=== PATIENT | female | born 1945 | race Caucasian/White ===

== ENCOUNTER 2017-12-04 23:29 | Emergency (ER) | payer MEDICARE ==
--- NOTE | 2017-12-05 01:15 | ER Document Report ---
ED Medical Screen (RME) - General Chief Complaint: Headache Stated Complaint: HEADACHE,NECK PAIN Time Seen by Provider: 12/05/17 01:11 Mode of Arrival: Ambulatory Information source: Patient Notes: Patient presents complaining of neck pain for the past week. Patient states that she has first started having right lateral neck pain and then it progressed to left lateral neck pain. Patient does complain of difficulty swallowing but denies any sore throat symptoms. Patient states she has neck muscle tenderness when she is swallowing. Patient does report cough for the past 2 weeks that is occasionally productive. Patient does complain of some occipital headache. Patient denies any nausea vomiting or fever. Patient has a history of hypertension, carpal tunnel, cholecystectomy I have greeted and performed a rapid initial assessment of this patient. A comprehensive ED assessment and evaluation of the patient, analysis of test results and completion of the medical decision making process will be conducted by additional ED providers. TRAVEL OUTSIDE OF THE [place] IN LAST 30 DAYS: No - Related Data Allergies/Adverse Reactions: No Known Allergies Allergy (Unverified 12/04/17 23:36) Physical Exam - Vital signs Vitals: Temp Pulse Resp BP Pulse Ox 98 F 84 18 182/76 H 99 12/04/17 23:39 12/04/17 23:39 12/04/17 23:39 12/04/17 23:39 12/04/17 23:39 - HEENT Neck: Other - Bilateral sternocleidomastoid muscle tenderness, bilateral trapezius muscle tenderness with spasm.. No: Meningismus Course - Vital Signs Vital signs: Temp Pulse Resp BP Pulse Ox 98 F 84 18 182/76 H 99 12/04/17 23:39 12/04/17 23:39 12/04/17 23:39 12/04/17 23:39 12/04/17 23:39 Doctor's Discharge - Discharge Referrals: GARETH MARTIN MD [Primary Care Provider] - Follow up as needed
[2017-12-05] MEDS ORDERED: IPRATROPIUM/ALBUTEROL 0.5-2.5 MG/3 ML AMPUL NEB ONE (02:09)
--- NOTE | 2017-12-05 02:09 | ER Document Report ---
ED General - General Chief Complaint: Headache Stated Complaint: HEADACHE,NECK PAIN Time Seen by Provider: 12/05/17 01:11 Mode of Arrival: Ambulatory Information source: Patient Notes: This is a 72-year-old female with hypertension who presents to the emergency room with nonproductive cough, headache, neck stiffness. Patient states that she was having significant cough for the past week or 2 and she started having headaches associated with severe cough. She does state that the neck stiffness started after. She denies any photophobia. She denies any fever or rash. She denies any nausea or vomiting. Patient does have a significant history of smoking and states has wheezed in the past. TRAVEL OUTSIDE OF THE [place] IN LAST 30 DAYS: No - HPI Onset: Last week Onset/Duration: Gradual Quality of pain: Dull Severity: Moderate Pain Level: 3 Associated symptoms: Nonproductive cough, Shortness of breath. denies: Chest pain, Fever Exacerbated by: Movement Relieved by: Denies Similar symptoms previously: No Recently seen / treated by doctor: No - Related Data Allergies/Adverse Reactions: No Known Allergies Allergy (Unverified 12/04/17 23:36) Past Medical History - General Information source: Patient - Social History Smoking Status: Former Smoker Cigarette use (# per day): No Chew tobacco use (# tins/day): No Frequency of alcohol use: None Drug Abuse: None Lives with: Alone Family History: None Patient has suicidal ideation: No Patient has homicidal ideation: No - Past Medical History Cardiac Medical History: Reports: Hx Hypertension Pulmonary Medical History: Reports: Hx Asthma EENT Medical History: Reports: None Neurological Medical History: Reports: None Endocrine Medical History: Reports: Other - Borderline diabetes (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 denies: Fever EENT: Other - Neck pain Cardiovascular: denies: Chest pain, Palpitations, Heart racing Respiratory: Cough, Wheezing Gastrointestinal: No symptoms reported Genitourinary: No symptoms reported Female Genitourinary: No symptoms reported Musculoskeletal: No symptoms reported Skin: No symptoms reported Hematologic/Lymphatic: No symptoms reported Neurological/Psychological: See HPI Physical Exam - Vital signs Vitals: Temp Pulse Resp BP Pulse Ox 98 F 84 18 182/76 H 99 12/04/17 23:39 12/04/17 23:39 12/04/17 23:39 12/04/17 23:39 12/04/17 23:39 Notes: Physical exam: GENERAL:72-year-old female, alert and oriented 3, no acute distress, she does have stable vital signs and is afebrile. HEAD: Atraumatic, normocephalic. EYES: Pupils equal round and reactive to light, extraocular movements intact, sclera anicteric, conjunctiva are normal. ENT: TMs normal, nares patent, oropharynx clear without exudates. Moist mucous membranes. NECK: Normal range of motion, stiff neck without obvious mass. She does have some tenderness to palpation along the paraspinal muscles in the back. LUNGS: Breath sounds clear to auscultation bilaterally and equal. No wheezes rales or rhonchi. HEART: Regular rate and rhythm without murmurs, rubs or gallops. ABDOMEN: Soft, normoactive bowel sounds. No tenderness to palpation. No guarding, no rebound. No masses appreciated. EXTREMITIES: Normal range of motion, no pitting or edema. No clubbing or cyanosis. NEUROLOGICAL: Cranial nerves II through XII grossly intact. She does have a stiff neck, she has no photophobia and does not appear to have any meningeal irritation. Normal speech, moving all extremities. PSYCH: Normal mood, normal affect. SKIN: Warm, Dry, normal turgor, no rashes or lesions noted. Course - Re-evaluation Re-evalutation: 12/05/17 04:14 Note: Clinically, the patient does not have any symptoms suggestive of meningitis. She has no photophobia. Her headache is significantly improved. She gives a history of having frequent coughs and severe at times. She states that the headache and the neck pain started after. She does have cervical spine disease and I think this may have been exacerbated by her coughing fits. Her chest x-ray does show a small pneumonia and she does have a history of smoking in the past. A trial nebulizer was performed and she thought she could mobilize secretions much better and breathe easier after this. I am going to send her home with an inhaler and treated with antibiotics for pneumonia. I will give her some muscle relaxer and pain medicine for the cervical spine. She is to follow-up with Dr. Shelby. If she has persistent neck pain, outpatient MRI might be pursued. She has no radicular findings now on no motor or sensory disturbance. - Vital Signs Vital signs: Temp Pulse Resp BP Pulse Ox 98 F 73 18 168/66 H 100 12/04/17 23:39 12/05/17 02:19 12/05/17 03:01 12/05/17 03:01 12/05/17 03:01 - Laboratory Result Diagrams: 12/05/17 02:10 12/05/17 02:10 Laboratory results interpreted by me: 12/05/17 02:10 BUN 24 H Glucose 118 H - Diagnostic Test Radiology reviewed: Image reviewed, Reports reviewed - CT of the head shows no mass lesions. CT of the cervical spine shows arthritis with C6/C7 bulging Chest x-ray shows a small pneumonia Discharge - Discharge Clinical Impression: Pneumonia, Cervical strain, Headache Condition: Stable Disposition: HOME, SELF-CARE Additional Instructions: As we discussed, your blood work looked quite good. Your sugar was a little elevated (118) but this is nonfasting. Your thyroid tests were normal. Your tests for anemia were good. CT scan of the head showed no abnormal mass lesions. Cervical spine CT did show degenerative changes with some arthritis and there was some disc bulge seen at C6/C7. This can be contributing to the neck stiffness Which ultimately could have been precipitated by the strong coughing. Your chest x-ray does show a small pneumonia and we are going to prescribe some antibiotics for you. I would like you to use the inhaler treatment: 2 puffs every 4-6 hours as needed. Take the muscle relaxer as prescribed. Take the pain medicine as needed. Take ibuprofen for pain as well. Do not take ibuprofen and Naprosyn together (these are the same class of medicines and it will not offer any more benefit by taking them together). You can take Tylenol in addition to the ibuprofen. Follow-up with Dr. Shelby as planned. It may be better to have a follow-up appointment with him after this treatment. If you have persistent neck pain, you may require an MRI of the cervical spine. Return to the emergency room for worsening cough, worsening shortness of breath , worsening pain or any concerns or getting worse. Prescriptions: Hydrocodone/Acetaminophen [[place] 5-325 mg Tablet] 1 tab PO Q4HP PRN #25 tablet PRN Reason: Cyclobenzaprine HCl [Flexeril 10 Mg Tablet] 10 mg PO Q8HP PRN #14 tablet PRN Reason: Doxycycline Hyclate 100 mg PO BID #20 capsule Referrals: ILAN SHELBY MD [Primary Care Provider] - Follow up in 1 week
--- NOTE | 2017-12-05 02:19 | RADIOLOGY REPORT (SQ) ---
EXAM DESCRIPTION: XR CHEST 2 VIEWS COMPLETED DATE/TME: 12/05/2017 01:12 CLINICAL HISTORY: 72 years Female, cough COMPARISON: None. FINDINGS: Adequate lung volume, small streaky and patchy opacity of the right middle lobe. Normal cardiac silhouette, atherosclerosis, and intact bony thorax. Upper abdominal clips. IMPRESSION: Small right middle lobe atelectasis/pneumonia.
[2017-12-05 02:22] LABS: ABSOLUTE EOSINOPHILS # (AUTO) 0.1 10^3/uL (0.0-0.6); ABSOLUTE LYMPHOCYTES (AUTO) 2.7 10^3/uL (0.5-4.7); ABSOLUTE MONOCYTES (AUTO) 0.9 10^3/uL (0.1-1.4); ABSOLUTE NEUT (AUTO) 6.2 10^3/uL (1.7-8.2); BASOPHILS % (AUTO) 0.4 % (0-2); EOSINOPHILS % (AUTO) 1.1 % (0-6); HEMATOCRIT 36.7 % (36.0-47.0); HEMOGLOBIN 12.7 g/dL (12.0-15.5); LYMPHOCYTES % (AUTO) 27.4 % (13-45); MEAN CORPUSCULAR HEMOGLOBIN 33.2 pg (27.0-33.4); MEAN CORPUSCULAR HGB CONC 34.7 g/dL (32.0-36.0); MEAN CORPUSCULAR VOLUME 96 fl (80-97); MONOCYTES % (AUTO) 8.8 % (3-13); PLATELET COUNT 290 10^3/uL (150-450); RED BLOOD COUNT 3.83 10^6/uL (3.72-5.28); SEGMENTED NEUTROPHILS % (AUTO) 62.3 % (42-78); TOTAL CELLS COUNTED % (AUTO) 100 %
[2017-12-05 02:45] LABS: ALANINE AMINOTRANSFERASE 34 U/L (9-52); ALBUMIN 4.1 g/dL (3.5-5.0); ALKALINE PHOSPHATASE 74 U/L (38-126); ANION GAP 13 (5-19); ASPARTATE AMINO TRANSFERASE 26 U/L (14-36); BILIRUBIN,DIRECT 0.2 mg/dL (0.0-0.4); BILIRUBIN,TOTAL 0.3 mg/dL (0.2-1.3); BLOOD UREA NITROGEN 24 mg/dL (7-20); CALCIUM 9.6 mg/dL (8.4-10.2); CARBON DIOXIDE 25 mmol/L (22-30); CHLORIDE 107 mmol/L (98-107); GLUCOSE 118 mg/dL (75-110); POTASSIUM 4.5 mmol/L (3.6-5.0); SODIUM 144.7 mmol/L (137-145); TOTAL PROTEIN 7.7 g/dL (6.3-8.2)
[2017-12-05 03:01] LABS: FREE T3 3.78 pg/mL (2.77-5.27); FREE T4 (FREE THYROXINE) 1.07 ng/dL (0.78-2.19)
[2017-12-05 03:14] LABS: THYROID STIMULATING HORMONE 3.17 uIU/mL (0.47-4.68)
--- NOTE | 2017-12-05 03:33 | RADIOLOGY REPORT (SQ) ---
PROCEDURE: CT OF THE HEAD WITHOUT INTRAVENOUS CONTRAST HISTORY: severe avila Indication: Same as above Comparison: None Technique: The study was completed on 12/05/2017 at 3:[address] of the head was done without intravenous contrast was done in the orthogonal planes. This exam was performed according to our departmental dose-optimization program, which includes automated exposure control, adjustment of the mA and/or KV according to the patient's size and/or use of iterative reconstruction technique. FINDINGS: There is no intracranial hemorrhage, midline shift mass effect or acute focal infarct If clinical concern exists regarding an acute ischemic/vascular pathology being responsible for patient's symptomatology, an MRI of the brain is more sensitive than the current study, in ruling out such a possibility. There is good barboza/white matter differentiation. The ventricular system is normal. The mastoid air cells are unremarkable . The paranasal sinuses are unremarkable . There is no visualization of acute fractures involving the calvarium or the skull base. IMPRESSION: There is no acute intracranial abnormality.
--- NOTE | 2017-12-05 03:36 | RADIOLOGY REPORT (SQ) ---
PROCEDURE: CT OF THE CERVICAL SPINE WITHOUT INTRAVENOUS CONTRAST HISTORY: neck pain Indication: Same as above Comparison: None Technique: The study was completed on 12/05/2017 at 3:[address] of the cervical spine was done without intravenous contrast, including axial, sagittal and coronal reconstructions. This exam was performed according to our departmental dose-optimization program, which includes automated exposure control, adjustment of the mA and/or KV according to the patient's size and/or use of iterative reconstruction technique. FINDINGS: There is no CT evidence of acute cervical spinal fractures or dislocations. The craniovertebral junction appears unremarkable. There is reduction in the intervertebral disc space heights, along with anterior and posterior osteophyte formation, at C5/C6 and C6/C7 levels. There is mild broad-based posterior disc bulge seen at C6/C7 level. Hypertrophic changes causing left-sided neural foraminal narrowing is seen at C5/C6 and C6/C7 levels There is limited evaluation for acute or chronic intervertebral disc herniations or protrusions given the limitation of lack of intrathecal contrast. The prevertebral and the paravertebral soft tissues appear unremarkable. There is no gross evidence of epidural hematoma or paraspinal soft tissue fluid collections. The remainder of the visualized surrounding subcutaneous soft tissues and muscle structures are grossly unremarkable. The visualized airway appears unremarkable. The visualized lung apices are unremarkable . The sagittal reconstructed images demonstrate normal alignment The coronal reconstructed images demonstrate normal alignment. IMPRESSION: There is reduction in the intervertebral disc space heights, along with anterior and posterior osteophyte formation, at C5/C6 and C6/C7 levels. There is mild broad-based posterior disc bulge seen at C6/C7 level. Hypertrophic changes causing left-sided neural foraminal narrowing is seen at C5/C6 and C6/C7 levels
[2017-12-05] MEDS ORDERED: HYDROCODONE/ACETAMINOPHEN 5-325 MG (6 TAB/ER DISP) PO PRN (04:00)
[2017-12-05] MEDS ORDERED: CYCLOBENZAPRINE HCL 10 MG TABLET PO ONE (04:00)
[2017-12-05] MEDS ORDERED: ALBUTEROL SULFATE HFA (90 MCG/PUFF) 8 GM MDI (1 MDI/ER DISP) IH ONE (04:09)
[2017-12-05 06:16] VITALS: BP 165/68
== END 2017-12-05 04:15 | disposition home or self-care (01) ==
LOC: ER 23:29
DX: J18.9 Pneumonia, unspecified organism (principal); S16.1XXA Strain of muscle, fascia and tendon at neck level, initial encounter; R51 Headache; R06.02 Shortness of breath; X58.XXXA Exposure to other specified factors, initial encounter; I10 Essential (primary) hypertension; Z87.891 Personal history of nicotine dependence
CPT/HCPCS: 94640; 99284; 36415; 84439; 84443; 85025; 80053; 84481; 71046; 70450; 72125; A9270 ×3; J3490; J7620

== ENCOUNTER → 2017-12-15 | Outpatient (CLI) | payer MEDICARE ==
--- NOTE | 2017-12-15 13:13 | RADIOLOGY REPORT (SQ) ---
EXAM DESCRIPTION: CHEST 2 VIEWS COMPLETED DATE/TIME: 12/15/2017 12:33 pm REASON FOR STUDY: J18.0 PRE OP CLEARENCE COMPARISON: 12/05/2017. EXAM PARAMETERS: NUMBER OF VIEWS: two views TECHNIQUE: Digital Frontal and Lateral radiographic views of the chest acquired. RADIATION DOSE: NA LIMITATIONS: none FINDINGS: LUNGS AND PLEURA: No acute infiltrates or effusions. MEDIASTINUM AND HILAR STRUCTURES: No masses or contour abnormalities. HEART AND VASCULAR STRUCTURES: The heart is normal with normal pulmonary vasculature. BONES: Dorsal spondylosis. HARDWARE: None in the chest. IMPRESSION: NO ACUTE DISEASE. TECHNICAL DOCUMENTATION: JOB ID: [id number] [employer]- All Rights Reserved Reading location - IP/workstation name: [email or web address]
== END ==
LOC: RAD 12:01
PROVIDERS: ATTEND Family Medicine
DX: J18.0 Bronchopneumonia, unspecified organism (principal)
CPT/HCPCS: 71046

== ENCOUNTER 2017-12-17 06:52 | Day surgery (SDC) | payer MEDICARE, OTHER ==
[2017-12-10 12:17] LABS: APPEARANCE,URINE SLIGHTLY-CLOUDY; BILIRUBIN,URINE NEGATIVE (NEGATIVE); COLOR,URINE YELLOW; GLUCOSE, URINE NEGATIVE (NEGATIVE); KETONES,URINE NEGATIVE (NEGATIVE); LEUKOCYTE ESTERASE,URINE SMALL (NEGATIVE); NITRITE,URINE NEGATIVE (NEGATIVE); PROTEIN,URINE NEGATIVE (NEGATIVE); URINE SPECIFIC GRAVITY 1.019; UROBILINOGEN,URINE NEGATIVE mg/dL (<2.0)
--- NOTE | 2017-12-10 12:49 | EKG REPORT ---
SEVERITY:- ABNORMAL ECG - SINUS RHYTHM LEFT BUNDLE BRANCH BLOCK : Confirmed by: Claudy Gooden MD 10-Dec-2017 12:48:43
[~2017-12-17 06:52] MED LIST: ACETAMINOPHEN 1,000 MG/100 ML RTUPB IV ONE; CEFAZOLIN 2 GM/D5W RTU 2 GM/50 ML RTUPB IV PRN; FENTANYL CITRATE INJ/PF 100 MCG/2 ML AMPUL ONE; LACTATED RINGERS 1000 ML IV PRN; LIDOCAINE 0.5% INJ-PF (5 MG/ML) 50 ML SDV SUBCUT PRN; LIDOCAINE 2% INJ-PF (100 MG/5 ML) SYRINGE ONE; MIDAZOLAM 2 MG/2 ML INJ ONE; ONDANSETRON HCL INJ/PF 4 MG/2 ML SDV ONE; PROPOFOL INJ 200 MG/20 ML VIAL IV ONE
[2017-12-17] MEDS ORDERED: CEFAZOLIN 2 GM/D5W RTU 2 GM/50 ML RTUPB IV ONE (07:20)
[2017-12-17] MEDS ORDERED: LIDOCAINE 1% INJ-PF (10 MG/ML) 30 ML SDV ONE (07:42)
[2017-12-17] MEDS ORDERED: BUPIVACAINE HCL 0.5 % INJ/PF 30 ML SDV ONE (07:42)
[2017-12-17] MEDS ORDERED: PROMETHAZINE HCL INJ 25 MG/1 ML VIAL IV PRN ×2 (09:07)
[2017-12-17] MEDS ORDERED: FENTANYL CITRATE INJ/PF 100 MCG/2 ML AMPUL IV PRN ×3 (09:07)
[2017-12-17] MEDS ORDERED: MORPHINE SULFATE 10 MG/ML INJ IV PRN (09:07)
[2017-12-17] MEDS ORDERED: MEPERIDINE HCL/PF INJ 25 MG/1 ML DISP.SYRIN IV PRN (09:07)
[2017-12-17] MEDS ORDERED: ONDANSETRON HCL INJ/PF 4 MG/2 ML SDV IV PRN ×2 (09:07→09:44)
[2017-12-17] MEDS ORDERED: DIPHENHYDRAMINE HCL 50 MG/ML VIAL IV PRN (09:07)
[2017-12-17] MEDS ORDERED: HYDROCODONE/ACETAMINOPHEN 5-325 MG TABLET PO PRN (09:44)
--- NOTE | 2017-12-17 09:45 | Operative Report ---
Operative Report DATE OF SURGERY: 12/17/17 PREOPERATIVE DIAGNOSIS: Right carpal tunnel syndrome. Right Middle Trigger finger POSTOPERATIVE DIAGNOSIS: Same OPERATION: Right endoscopic carpal tunnel release. Right Middle Finger A1 Karine Julius SURGEON: KYLIE ROMERO ANESTHESIA: LMAC COMPLICATIONS: None ESTIMATED BLOOD LOSS: Minimal PROCEDURE: Indication for above procedure: 72-year-old female with complaints of numbness and tingling in her right wrist. Patient electrodiagnostic testing confirming carpal tunnel syndrome. We attempted conservative measures without resolution of patient's symptoms. At that point decision was made to proceed with operative intervention. Risks and benefits were explained patient verbalized understanding consented for the procedure. Procedure In Detail: Patient was seen and evaluated in the preoperative holding area. The Right upper extremity was initialized and marked. Patient received Ancef IV for bacterial prophylaxis. Patient was taken back to the operative room where transferred operative table. Patient was then placed under MAC anesthesia. Once adequately anesthetized, a nonsterile tourniquet was placed on the upper extremity. A surgical team debriefing was performed ensuring all instrumentation was available, the surgical procedure was discussed with possible concerns reviewed. Skin was prepped with alcohol and 10cc of 1% lidocaine without epinephrine was injected locally and w/in carpal canal, additional 5 cc was injected along the A1 karine of the middle finger.. The upper extremity was prepped with chlorhexidine and alcohol and draped in a sterile fashion. A timeout was done identifying correct patient, procedure and extremity everyone in attendance agree with this and verbalized no concerns.The extremity was then exsanguinated the tourniquet was inflated to 250 mmHg. A transverse skin incision was made just proximal to the wrist flexion crease ulnar to the palmaris longus. Blunt dissection was performed down to the palmaris longus tendon which was retracted radially. Deep to the palmaris longus tendon was the volar carpal ligament this was incised identifying the median nerve deep. With the use of a Pine Apple elevator any soft tissue/synovium was freed from the undersurface of the transverse carpal ligament. The hook of hamate was identified ulnarly. The ConMed cannulas were then introduced beginning with #1 progressing to a #3 gently dilating the carpal canal. I then introduced the scope within the cannula and identified transverse carpal ligament ensuring the median nerve was not visualized within the cannula. I triangulated distally with a 25-gauge needle identifying the distal aspect of the transverse carpal ligament, to ensure protection of the superficial palmar arch. The arthroscopic knife was used to incise the transverse carpal ligament under direct visualization with the arthroscopic camera. Any excess transverse fibers that remained after the first past were carefully released with a repeat pass. The median nerve was then directly visualized radially without disruption. Once this was completed I placed the #3 dilator and assured I got complete release of the transverse carpal ligament without residual compression. The median nerve was directly visualized and free of any overlying compression. I then turned my attention to release of the volar antebrachial fascia proximally. Once again a [place] was used to open the wound and I proceeded with cannula #1 to #3. The arthroscope was introduced into the cannula and under direct visualization the volar antebrachial fascia was released. Once this was complete I copiusly irrigated the wound with normal saline. The skin incision was closed with 4-0 Monocryl subcutaneous and a running subcuticular 4-0 Monocryl. Longitudinal skin incision was made centered over the A1 karine of the middle finger. The radial and ulnar neurovascular bundles were identified and retracted from the wound. The A1 karine was identified and incised. The A1 karine was released to the level of the A2 karine but not through the A2 karine. The palmar aponeurotic karine was released proximal to the A1 karine. Patient was then awoken from MAC anesthesia and made a full human factors specialist there is no evidence of residual triggering or locking. The wound was then copiously irrigated with normal saline. Skin was closed with interrupted 4-0 nylon suture. Wound was dressed with Xeroform and a soft dressing. Sponge counts, instrument counts, needle counts counts were correct. Patient was then awoken from anesthesia. Transferred from the operating room table to the operating room stretcher. There was no intraoperative complications patient tolerated procedure well stable to PACU. Postoperative plan: Patient will follow-up as scheduled for wound check. They will call with any questions or concerns. This was reinforced with Dermabond and Steri-Strips. Sterile, 4 x 4's and a Silvestre bandage was placed loosely. Sponge counts, instrument counts and needle counts were correct. The was no intraoperative complications patient tolerated the procedure well and was stable to PACU.
--- NOTE | 2017-12-17 09:45 | Discharge Summary ---
Discharge Summary (SDC) - Discharge Final Diagnosis: Carpal tunnel syndrome Date of Surgery: 12/17/17 Discharge Date: 12/17/17 Condition: Good Treatment or Instructions: Schedule Follow Up w/ Dr. Graeme Galo @ [facility] to be seen in 10-14 days or as scheduled [place]: [place]: [place]: May remove dressing on postop day #3, keep incision covered and dry. Ice and elevate May begin finger range of motion attempting to make full fist. Stool softener of choice when on pain medication. Prescriptions: Hydrocodone/Acetaminophen [[place] 5-325 mg Tablet] 1 tab PO Q6 PRN #20 tablet PRN Reason: Referrals: ILAN SHELBY MD [Primary Care Provider] - Discharge Activity: No Lifting Over 10 Pounds, No Lifting/Push/Pulling Report the Following to Your Physician Immediately: Fever over 101 Degrees, Unusual Bleeding, Redness, Swelling, Warmth
[2017-12-17 11:22] VITALS: BP 147/84
== END 2017-12-17 11:15 | disposition home or self-care (01) ==
LOC: OROUT 06:52
PROVIDERS: ATTEND Orthopaedic Surgery
DX: G56.01 Carpal tunnel syndrome, right upper limb (principal); M65.331 Trigger finger, right middle finger; I10 Essential (primary) hypertension; M19.90 Unspecified osteoarthritis, unspecified site; J45.909 Unspecified asthma, uncomplicated; Z79.82 Long term (current) use of aspirin; Z79.899 Other long term (current) drug therapy; Z87.891 Personal history of nicotine dependence
CPT/HCPCS: 93005; 36415; 84132; 81001; 93010; 29848; 26055; J2250; J3010; J3490; J2001; J2405; J2704; J0690; J0131; 1810